=== PATIENT | male | born 1980 | race Caucasian/White ===

== ENCOUNTER 2018-03-21 19:43 | Emergency (ER) | payer MEDICARE, MEDICAID ==
[~2018-03-21] VITALS: Ht 154.9 cm; Wt 80.7 kg
[~2018-03-21 19:43] MED LIST: BACITRACIN1 APPLIC TOPIC
[2018-03-21 19:57] VITALS: BP 129/91
--- NOTE | 2018-03-21 20:00 | NUR ---
ED Nurse Note: Pt c/o coughing fpr 2 days,sore throat and losing some voice. pt is accompanied with parents. pt is able to talk and breath normaly with no evidence of obstruction or respritory distress. pt is sating at 100%.
[2018-03-21] MEDS ORDERED: AMOXICILLIN500 MG ORAL (20:11)
[2018-03-21] MEDS ORDERED: PROMETHAZINE-C118 M1 ORAL (20:12)
[2018-03-21 20:16] VITALS: BP 122/92
--- NOTE | 2018-03-21 20:18 | NUR ---
ED Nurse Note: Pt is DC per ERMD order. pt is alert and oriented times 4. pt vital signs, status and condition are within normal limits. pt has left with all belongings including DC notes and prescription. pt and guardians is able to understand DC notes and prescriptions. pt and guardians is instructed to follow up with primary provider as soon as possible. pt is stable for discharge. pt and guardians is instructed to return as soon as possible to ER if any reoccurance of symptoms. all pt status, vital signs, and condition is reported to ERMD prior to DC. pt is able to ambulate with steady gait. PT ID is DC.
--- NOTE | 2018-03-21 20:32 | Emergency Room Report ---
History of Present Illness General Chief Complaint: Flu Like Symptoms Source: Family Member Present Illness HPI The patient is a 37-year-old male presenting for sore throat and dry cough for the past 3 days. He has Down syndrome and is accompanied by both parents. He admits to subjective fever. The parents state that the patient is unable to sleep due to the cough. The patient's father states that he started giving him amoxicillin, which was not prescribed for him, yesterday and symptoms improved. The patient and his parents deny other symptoms including nausea, vomiting, chills, shortness of breath, wheezing, hemoptysis, night sweats, rash, BREWSTER, fatigue Allergies: Coded Allergies: NO KNOWN ALLERGIES (Unverified Allergy, Unknown, 10/21/14) Patient History Past Medical History: see triage record Pertinent Family History: none Reviewed Nursing Documentation: PMH: Agreed; PSxH: Agreed Nursing Documentation-PMH Past Medical History: No Stated History Hx Neurological Problems: Yes - Down Syndrome Review of Systems All Other Systems: negative except mentioned in HPI Physical Exam Vital Signs Date Time Temp Pulse Resp B/P (MAP) Pulse Ox O2 Delivery O2 Flow Rate FiO2 03/21/18 19:50 98.2 72 20 129/91 99 Room Air Sp02 EP Interpretation: reviewed, normal General Appearance: no apparent distress, alert, GCS 15, non-toxic Head: normocephalic, atraumatic ENT: no angioedema, TMs + canals normal, uvula midline, nasal congestion, pharyngeal erythema Neck: full range of motion, supple/symm/no masses Respiratory: chest non-tender, lungs clear, normal breath sounds, speaking full sentences Cardiovascular #1: regular rate, rhythm, no edema Musculoskeletal: back normal, gait/station normal, normal range of motion, non- tender Neurologic: alert, responsive, normal gait Psychiatric: mood/affect normal Skin: normal color, no rash, warm/dry, well hydrated Lymphatic: adenopathy - cervical Medical Decision Making PA Attestation Dr. Linder is my supervising physician. Patient management was discussed with my supervising physician Diagnostic Impression: Primary Impression: Pharyngitis Qualified Codes: J02.9 - Acute pharyngitis, unspecified ER Course The patient is a 37-year-old male presenting for sore throat and cough for the past 3 days. Differential diagnosis include but not limited to pharyngitis, sinusitis, AOM, bronchitis, PNA, influenza Physical exam: Vitals within normal limits. Afebrile. No apparent distress HEENT exam: There is bilateral tonsillar erythema. Uvula midline. Moist mucous membranes. There is bilateral cervical lymphadenopathy. Lungs are clear to auscultation bilaterally Skin is warm and dry. No rash The patient will be discharged home with a prescription for amoxicillin, cough medication, and is given ER precautions. Patient will followup with primary care Last Vital Signs Date Time Temp Pulse Resp B/P (MAP) Pulse Ox O2 Delivery O2 Flow Rate FiO2 03/21/18 20:16 98.2 73 18 122/92 99 Room Air Status: improved Disposition: HOME, SELF-CARE Condition: Improved Scripts Codeine/Promethazine Hcl* (PROMETHAZINE-CODEINE SYRUP*) 118 Ml Syrup 5 ML ORAL Q6H PRN for For Cough, #118 ML 0 Refills Prov: GARY ALONSO 03/21/18 Amoxicillin* (AMOXIL*) 500 Mg Capsule 500 MG ORAL Q12HR, #14 CAP Prov: GARY ALONSO 03/21/18 Patient Instructions: Pharyngitis Additional Instructions: I discussed my findings with the patient and his parents. All questions and concerns have been answered. Treatment and medication compliance have been addressed. I advised the patient that they need to follow up with PMD in 3-5 days. Return to ED if pain remains or worsens, cough worsens or remains, you notice blood in your sputum, you notice wheezing, you experience a fever, or if needed for any reason. Patient verbalized understanding of discharge instructions. GARY ALONSO Mar 21, 2018 20:32
== END 2018-03-21 20:15 | disposition home or self-care (01) ==
LOC: EMR 20:15
DX: J02.9 Acute pharyngitis, unspecified (principal); Q90.9 Down syndrome, unspecified
CPT/HCPCS: 99282